=== PATIENT | female | born 1985 | race Caucasian/White ===

== ENCOUNTER 2024-02-12 13:01 | Emergency (ER) | payer BC, SELFPAY ==
[2024-02-12 13:08] VITALS: BP 110/69
[2024-02-12 13:23] LABS: % Basophils 0.4 % (0-2); % Immature Granulocytes 0.2 % (0-0.5); % Monocytes 5.9 % (1.7-9.3); % Neutrophils 72.5 % (42.2-75.2); Absolute Eosinophils 0.1 10^3/uL (0-0.7); Absolute Monocytes 0.6 10^3/uL (0.1-0.6); Absolute Neutrophils 7.2 10^3/uL (1.4-6.5); Hematocrit 35.4 % (37.0-47.0); Mean Corp Hgb Conc. 36.7 g/dL (33.0-37.0); Mean Corpuscular Hgb 30.8 pg (27.0-31.0); Mean Corpuscular Volume 83.9 fL (81.0-99.0); Mean Platelet Volume 9.9 fL (7.4-10.4); Nucleated Red Blood Cells % 0 %; Platelet Count 299 10^3/uL (130-400); Red Blood Cell Count 4.22 10^6/uL (4.20-5.40); Red Cell Dist. Width 12.1 % (11.5-14.5); White Blood Cell Count 9.9 10^3/uL (4.8-10.8)
[2024-02-12 14:02] LABS: ALT (SGPT) 16 U/L (0-35); AST (SGOT) 22 U/L (14-36); Albumin 4.1 g/dl (3.5-5.0); Alkaline Phosphatase 51 U/L (38-126); Blood Urea Nitrogen 15 mg/dl (7-17); Calcium 9.1 mg/dl (8.4-10.2); Carbon Dioxide 23 mmol/L (22-30); Chloride 104 mmol/L (98-107); Glucose 92 mg/dl (70-99); Potassium 3.7 mmol/L (3.5-5.1); Sodium 136 mmol/L (135-145); Total Bilirubin 1.2 mg/dl (0.2-1.3); Total Protein 6.8 g/dl (6.3-8.2); eGFR > 60.00
--- NOTE | 2024-02-12 15:08 | ED.GENMED ---
History of Present Illness
General
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
Source: patient
Exam Limitations: none
Time Seen by Provider: 02/12/24 14:11
Nursing documentation reviewed up to this point in time: agreed with
Travel History
Have you had any contact with someone who has COVID-19?: No
Do you have any symptoms of coronavirus? Fever > 100 degrees, chills, cough, shortness of breath, sore throat, loss of taste or smell, muscle aches, or headache?: No
History of Present Illness
History of Present Illness:
38-year-old female with no chronic medical issues who is G3 A1 P1 currently approximately 8 weeks by dates presents to the emergency room for evaluation of lower abdominal discomfort and spotting. Patient reports that for the past few
weeks since she found out she was she has had some occasional pains in the right lower abdomen. She says that it seems a little bit worse over the weekend and she woke up this morning and had some very light spotting�she discussed with her
ORE CRUSHING DUST COLLECTOR (Dr. Saldivar) who recommended she come to the emergency room to be evaluated for an ultrasound. She has not yet had an ultrasound established . Aside from the above symptoms she denies any other issues. She has not had any
fevers or chills. She denies any urinary issues. She denies any nausea or vomiting or change in bowel movements. Her only surgical history is a prior .
Review of Systems
Review of Systems
All Other Systems: ROS reviewed and negative except as documented in HPI and ROS
Constitutional: Denies fever or chills
Respiratory: Denies trouble breathing
Cardiac: Denies chest pain
ABD/GI: Reports abdominal pain; Denies nausea, vomiting or diarrhea
: Reports bleeding (Spotting); Denies dysuria or flank pain
Musculoskeletal: Denies neck pain or back pain
Neurological: Denies dizzy or headache
Phy Exam
Physical Exam
Physical Exam:
General: Awake, alert, oriented x3; no acute distress
Head: Normocephalic, atraumatic
Eyes: Conjunctiva normal
Throat: Airway intact, handling secretions
Neck: Trachea midline, supple without meningismus
Lungs: Breathing comfortably with no distress, normal respiratory rate, normal oxygen saturation on room air
Heart: Regular rate
Abd: Soft, non distended, completely nontender to deep palpation
Neuro: No gross deficits
Skin: no rash
Extremities: Warm and well-perfused
Scores
Heart Failure Risk
Heart Failure Risk Score: Not Applicable
Heart Score for Chest Pain Patients
STEMI patient?: Not applicable
Withdrawal Assessment of Alcohol
Withdrawal Assessment Completed?: Not applicable
Course
Orders/Labs/Results
Orders:
Orders
02/12/24 13:07
US W Transvaginal Urgent
Reason For Exam: 8 weeks and spotting
02/12/24 13:12
Complete Blood Count/With Diff Urgent
Comprehensive Metabolic Panel Urgent
HCG, Beta Quantitative [Beta HCG Quantitative] Urgent
Is this a screen?: No
Abnormal Lab Results
02/12/24
13:12
Hct 35.4 L %
(37.0-47.0)
Absolute Neuts (auto) 7.2 H 10^3/uL
(1.4-6.5)
Lymphocytes % 20.0 L %
(20.5-51.1)
02/12/24 13:12
02/12/24 13:12
Vital Signs
Initial and Last Documented VS:
Initial Vital Signs
Temp Pulse Resp BP Pulse Ox
36.6 C 79 17 110/69 99
02/12/24 13:08 02/12/24 13:08 02/12/24 13:08 02/12/24 13:08 02/12/24 13:08
Last Documented Vital Signs
Temp Pulse Resp BP Pulse Ox
36.6 C 79 17 110/69 99
02/12/24 13:08 02/12/24 13:08 02/12/24 13:08 02/12/24 13:08 02/12/24 13:08
MDM/Problems Addressed
Differential Diagnosis Includes:
Implantation pains, ectopic , miscarriage/threatened AB; appendicitis always a consideration for right lower quadrant pain but with no tenderness, ongoing symptoms for weeks very low clinical suspicion in my judgment no further workup for
this diagnosis indicated
MDM/Problems Addressed:
38-year-old female presents for evaluation of occasional lower abdominal discomfort worse on the right for the past few weeks since discovering she was . This morning had some light spotting and discussed with her ORE CRUSHING DUST COLLECTOR who recommended she
come to the ER for an ultrasound. Vitals are normal on exam as above�notably has benign abdominal examination. She had lab work sent in triage including a CBC which showed no abnormalities�normal white blood cell count, normal hemoglobin. CMP
within acceptable range. Her beta-hCG was greater than 34,000. She was sent for pelvic ultrasound, will continue to monitor and reassess after the above.
*Radiology
Radiology exam reviewed: radiology read reviewed
*Pulse Oximetry
Patient hypoxic: no
*Critical Care Note
Total Time (30-74mins, 75-104mins- exclusive of procedures): Not Applicable
Data Reviewed
Source: patient
Patient Management
Discussion with other providers: Life Insurance Salesperson (Discussed with ORE CRUSHING DUST COLLECTOR)
ED Attending Note
-
Portions of this chart may have been created with voice recognition software.� Occasional wrong word or��sound alike� substitutions may have occurred due to the inherent limitations of voice recognition software.
Discharge Plan
Departure
Referrals:
Celeste Erickson CRNP [Family Provider] -
Interventions
Interventions:
*Risk Screen - Suicide Last Done: 02/12/24 13:09
*General Assessment Last Done: 02/12/24 13:09
*Neglect/Abuse Screening Last Done: 02/12/24 13:09
*ED COVID-19 Vaccine History Last Done: 02/12/24 13:09
ED-Female Genitourinary Assessment Last Done: 02/12/24 14:58
Discharge Date and Time
Print Language: BELARUSIAN
[2024-02-12 16:00] VITALS: BP 111/64
== END 2024-02-12 16:01 | disposition home or self-care (01) ==
LOC: EMR 13:01
PROVIDERS: Emergency Medicine; EMERGENCY PHYSICIAN Emergency Medicine; FAMILY PHYSICIAN Nurse Practitioner Adult Health
DX: O26.891 Other specified pregnancy related conditions, first trimester (principal); O26.851 Spotting complicating pregnancy, first trimester; R10.30 Lower abdominal pain, unspecified; Z3A.08 8 weeks gestation of pregnancy
CPT/HCPCS: 99284; 76801; 76817; 80053; 84702; 85025

== ENCOUNTER → 2024-07-14 17:21 | Outpatient (REF) | payer BC, SELFPAY | LOC: RAD 17:21 | PROVIDERS: ATTENDING PHYSICIAN Physician Assistant; FAMILY PHYSICIAN Nurse Practitioner Adult Health | DX: R05.9 Cough, unspecified (principal) | CPT/HCPCS: 71046 ==

== ENCOUNTER → 2025-04-08 12:34 | Outpatient (REF) | payer BC, SELFPAY ==
--- NOTE | 2025-04-08 11:31 | PN.DIAED06 ---
Meal Plan - Gestational
- Breakfast
Gestational Diabetes Meal Plan Name: 1800 calories
Breakfast - Total Carbohydrate (grams): 30 (carbs: 1 serving = 15 grams)
Breakfast - Starch Carbohydrate: 1
Breakfast - Fruit Carbohydrate: 0 (no fruit or juice before noon)
Breakfast - Milk Carbohydrate: 1
Breakfast - Nonstarchy Vegetables: Yes
Breakfast - Meat/Protein: 1 (protein: 1 serving = 1 oz/7 grams)
Breakfast - Fat: 2 (fats: 1 serving = 5 oz)
- Morning Snack
Morning Snack - Total Carbohydrate (grams): 30
Morning Snack - Starch Carbohydrate: 1
Morning Snack - Fruit Carbohydrate: 0 (no fruit or juice before noon)
Morning Snack - Milk Carbohydrate: 1
Morning Snack - Nonstarchy Vegetables: Yes
Morning Snack - Meat/Protein: 0.5
Morning Snack - Fat: 0
- Lunch
Lunch - Total Carbohydrate (grams): 45
Lunch - Starch Carbohydrate: 2
Lunch - Fruit Carbohydrate: 1
Lunch - Milk Carbohydrate: 0
Lunch - Nonstarchy Vegetables: Yes
Lunch - Meat/Protein: 2
Lunch - Fat: 1
- Afternoon Snack
Afternoon Snack - Total Carbohydrate (grams): 30
Afternoon Snack - Starch Carbohydrate: 1
Afternoon Snack - Fruit Carbohydrate: 1
Afternoon Snack - Milk Carbohydrate: 0
Afternoon Snack - Nonstarchy Vegetables: Yes
Afternoon Snack - Meat/Protein: 1
Afternoon Snack - Fat: 0
- Dinner
Dinner - Total Carbohydrate (grams): 45
Dinner - Starch Carbohydrate: 2
Dinner - Fruit Carbohydrate: 0
Dinner - Milk Carbohydrate: 1
Dinner - Nonstarchy Vegetables: Yes
Dinner - Meat/Protein: 2
Dinner - Fat: 2
- Evening Snack
Evening Snack - Total Carbohydrate (grams): 30
Evening Snack - Starch Carbohydrate: 1
Evening Snack - Fruit Carbohydrate: 0
Evening Snack - Milk Carbohydrate: 1
Evening Snack - Nonstarchy Vegetables: Yes
Evening Snack - Meat/Protein: 1
Evening Snack - Fat: 1
--- NOTE | 2025-04-08 15:32 | PN.DE ---
Diabetes Education
- -
04/08/2025 GESTATIONAL DIABETES EDUCATION CONSUL
Met with patient today for medical nutrition therapy. G2,1, currently at 30 weeks of gestation, with an KAYLA of 06/13/2025.
Explained glucose metabolism in body and what occurs during to cause increase blood sugar. Discussed importance of keeping BS well controlled to avoid complications to the baby during and after (macrosomia, hypoglycemia). Discussed
macronutrients, provided with 1800 lance GDM meal plan.
Discussed importance of physical activity to help lower glucose. She is walking, but commutes into [place] so fitting in exercise is difficult.
Elena presented to the appointment with a new Glucose monitor- [employer] Verio with supplies. Reviewed proper testing technique, testing sites and testing pattern. She is aware to test FBS and 2 hr pp each meal. Expected results for FBS <90 mg/dl
and 2 hr pp <120 mg/dl. Log sheet provided for her to record results, she will send a 4-day meal log with all her FBG and 2hr Post prandial glucose numbers to this office for review. In addition, she will send all her glucose readings. Cathy
every Tuesday. She contacted her insurance company, was told [employer] CGM is covered and provided a phone # for prior authorization. We will outreach office for assistance with documentation. She was encouraged to reach out
should she require insulin.
--- NOTE | 2025-04-10 12:27 | PN.DE ---
Diabetes Education
- -
04/10/2025 GESTATIONAL DIABETES EDUCATION CONSULT FOLLOW UP
Received email from Elena, she provided written food log with corresponding glucose numbers.
Fasting glucose 69/ Her 2 hour post prandial breakfast glucose was high at 141, no protein or healthy fat source included in breakfast. Recommended she add protein and fat as recommended in meal plan to help minimize glucose spike. Her 2 hour post
prandial glucose after dinner was 125, she had a peach with dinner. I recommended she try a lower sugar fruit such as berries and eat any carbohydrate last in meal. She also did not have an evening snack, recommended she eat a snack 1-2 hours prior
to bed as meal plan suggests to keep her AM BS WNL and avoid hypoglycemia in the middle of the night.
She also stated [facility] denied her CGM sensor prescription, recommended she contact insurance company to file an appeal.
== END ==
LOC: DES 12:34
PROVIDERS: ATTENDING PHYSICIAN Obstetrics & Gynecology
DX: O24.419 Gestational diabetes mellitus in pregnancy, unspecified control (principal)
CPT/HCPCS: 99078

== ENCOUNTER → 2025-04-24 07:50 | Outpatient (REF) | payer BC, SELFPAY | LOC: PNTC 07:50 | PROVIDERS: ATTENDING PHYSICIAN Obstetrics & Gynecology | DX: O24.410 Gestational diabetes mellitus in pregnancy, diet controlled (principal); Z31.83 Encounter for assisted reproductive fertility procedure cycle | CPT/HCPCS: 76816 ==

== ENCOUNTER → 2025-05-14 16:25 | Outpatient (REF) | payer BC, SELFPAY | LOC: PNTC 16:25 | PROVIDERS: ATTENDING PHYSICIAN Student in an Organized Health Care Education/Training Program | DX: O09.819 Supervision of pregnancy resulting from assisted reproductive technology, unspecified trimester (principal) | CPT/HCPCS: 76815 ==

== ENCOUNTER → 2025-05-21 08:08 | Outpatient (REF) | payer BC, SELFPAY | LOC: PNTC 08:08 | PROVIDERS: ATTENDING PHYSICIAN Student in an Organized Health Care Education/Training Program | DX: O09.819 Supervision of pregnancy resulting from assisted reproductive technology, unspecified trimester (principal) | CPT/HCPCS: 59025; 76816 ==

== ENCOUNTER → 2025-05-28 16:06 | Outpatient (REF) | payer BC, SELFPAY | LOC: PNTC 16:06 | PROVIDERS: ATTENDING PHYSICIAN Student in an Organized Health Care Education/Training Program | DX: O09.819 Supervision of pregnancy resulting from assisted reproductive technology, unspecified trimester (principal) | CPT/HCPCS: 59025; 76815 ==

== ENCOUNTER → 2025-06-04 16:34 | Outpatient (REF) | payer BC, SELFPAY | LOC: PNTC 16:34 | PROVIDERS: ATTENDING PHYSICIAN Obstetrics & Gynecology | DX: O09.813 Supervision of pregnancy resulting from assisted reproductive technology, third trimester (principal); O09.523 Supervision of elderly multigravida, third trimester; O24.410 Gestational diabetes mellitus in pregnancy, diet controlled | CPT/HCPCS: 59025; 76815 ==

== ENCOUNTER → 2025-06-11 10:58 | Outpatient (REF) | payer BC, SELFPAY | LOC: PNTC 10:58 | PROVIDERS: ATTENDING PHYSICIAN Obstetrics & Gynecology | DX: O09.813 Supervision of pregnancy resulting from assisted reproductive technology, third trimester (principal); O09.523 Supervision of elderly multigravida, third trimester; O24.410 Gestational diabetes mellitus in pregnancy, diet controlled | CPT/HCPCS: 59025; 76815 ==

== ENCOUNTER 2025-06-13 01:09 | Inpatient (IN) | payer BC, SELFPAY ==
[2025-06-13 01:29] VITALS: BMI 26.2
[2025-06-13 01:32] LABS: Glucose - Point of Care 101 mg/dl (70-99)
[2025-06-13 01:39] LABS: Hematocrit 38.7 % (37.0-47.0); Hemoglobin 13.9 g/dL (12.0-16.0); Mean Corp Hgb Conc. 35.9 g/dL (33.0-37.0); Mean Corpuscular Volume 85.1 fL (81.0-99.0); Platelet Count 224 10^3/uL (130-400); Red Cell Dist. Width 12.2 % (11.5-14.5)
[2025-06-13] MEDS: XYLOCAINE-MPF 1% VIAL 30 ML INFIL ×2 (01:46→02:00)
[2025-06-13 02:19] VITALS: BP 136/78; BMI 27.0
[2025-06-13] MEDS: MOTRIN 600 MG PO ×4 (04:36→22:49)
[2025-06-13] MEDS: STADOL 1 MG IV (05:00)
[2025-06-13] MEDS: TYLENOL 650 MG PO ×4 (05:11→22:48)
[2025-06-13] MEDS: COLACE 100 MG PO ×2 (09:26→20:25)
[2025-06-14] MEDS: MOTRIN 600 MG PO ×3 (05:59→17:31)
[2025-06-14] MEDS: TYLENOL 650 MG PO ×2 (05:59→12:38)
[2025-06-14 06:51] LABS: Hematocrit 32.2 % (37.0-47.0); Hemoglobin 11.0 g/dL (12.0-16.0)
[2025-06-14] MEDS: COLACE 100 MG PO ×2 (08:50→20:15)
[2025-06-14 13:41] LABS: Syphilis/T. pallidum Ab Reflex Negative (Negative)
[2025-06-15] MEDS: MOTRIN 600 MG PO ×2 (00:54→08:00)
[2025-06-15] MEDS: COLACE 100 MG PO (08:01)
[2025-06-15] MEDS: FLUZONE (6 mos+) 2025-2026 FORMULA 0.5 ML IM (09:33)
== END 2025-06-15 10:27 | disposition home or self-care (01) | DRG 807 ==
LOC: LDRP 01:09
PROVIDERS: Obstetrics & Gynecology; ADMITTING PHYSICIAN Obstetrics & Gynecology
PROC: 10E0XZZ Delivery of Products of Conception, External Approach (ICD-10-PCS; 2025-06-13)
PROC: 0KQM0ZZ Repair Perineum Muscle, Open Approach (ICD-10-PCS; 2025-06-13)
PROC: 3E02340 Introduction of Influenza Vaccine into Muscle, Percutaneous Approach (ICD-10-PCS; 2025-06-15)
DX: O34.219 Maternal care for unspecified type scar from previous cesarean delivery (principal); Z37.0 Single live birth; Z3A.39 39 weeks gestation of pregnancy; O70.1 Second degree perineal laceration during delivery; O70.0 First degree perineal laceration during delivery; O69.81X0 Labor and delivery complicated by cord around neck, without compression, not applicable or unspecified; Z23 Encounter for immunization
CPT/HCPCS: 36415; 82962; 85014; 85018; 85027; 86780; 86850; 86900; 86901; 88307; 90656; G0008